=== PATIENT | female | born 1985 | race Caucasian/White ===

== ENCOUNTER 2020-07-14 16:21 | Emergency (ER) | payer OTHER ==
[~2020-07-14] VITALS: Ht 167.6 cm; Wt 79.4 kg
[2020-07-14] MEDS ORDERED: Robaxin-750750 MG PO (20:55)
== END 2020-07-14 21:24 | disposition home or self-care (01) ==
LOC: ER 16:21
DX: S61.031A Puncture wound without foreign body of right thumb without damage to nail, initial encounter (principal); M54.6 Pain in thoracic spine; F17.210 Nicotine dependence, cigarettes, uncomplicated; Z88.0 Allergy status to penicillin; Z88.1 Allergy status to other antibiotic agents; V48.5XXA Car driver injured in noncollision transport accident in traffic accident, initial encounter; Y92.410 Unspecified street and highway as the place of occurrence of the external cause
CPT/HCPCS: 99283; A9270

== ENCOUNTER → 2024-11-26 | Outpatient (CLI) | payer OTHER ==
[~2024-11-26] MED LIST: Robaxin-750750 MG PO
[2024-11-26 20:15] LABS: CHOL/HDL RATIO 4.6; Cholesterol 255 mg/dL (50-200); HDL Cholesterol 56 mg/dL (>39); LDL/HDL RATIO 2.5; Low Density Lipoprotein Chol 141 mg/dL (0-110); Prolactin 5.4 ng/mL; Triglycerides 289 mg/dL (30-160); Very Low Density Lipoprot Chol 57 mg/dL (6-32)
[2024-11-29 12:03] LABS: Bacterial Vaginosis PCR Negative (NEGATIVE); Candida Group, PCR NOT DETECTED (NOT DETECT); Candida glabrata-krusei, PCR NOT DETECTED (NOT DETECT)
[2024-11-29 16:29] LABS: DHEAS 235 ug/dL (61-337)
[2024-11-30 18:22] LABS: 17-HYDROXYPROGESTERONE 15.17 ng/dL (<=206.00)
[2024-12-01 17:37] LABS: ANTI-MULLERIAN HORMONE 0.14 ng/mL (<=6.282)
[2024-12-01 19:01] LABS: TESTOSTERONE BY MASS SPEC 20 ng/dL (9-55)
== END ==
LOC: LAB SHORT 17:46 → LAB 17:46
PROVIDERS: General Practice
DX: N91.1 Secondary amenorrhea (principal)
CPT/HCPCS: 80061; 81515; 82627; 83001; 83002; 83498; 83520; 84146; 84403; 84443